=== PATIENT | female | born 1990 ===

== ENCOUNTER 2017-06-22 22:50 | Emergency (ER) | payer MEDICAID ==
[2017-06-22 23:06] VITALS: BP 101/68; PULSE 75; RESP 16; TEMP 98; O2SAT 99
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
== END 2017-06-22 23:36 | disposition home or self-care (01) ==
LOC: H.ER 22:50
DX: S39.012A Strain of muscle, fascia and tendon of lower back, initial encounter (principal); S70.02XA Contusion of left hip, initial encounter; V03.10XA Pedestrian on foot injured in collision with car, pick-up truck or van in traffic accident, initial encounter